=== PATIENT | female | born 1980 | race Caucasian/White ===

== ENCOUNTER 2022-10-04 08:00 | Day surgery (SDC) | payer BC ==
--- NOTE | 2022-10-03 13:17 | HP ---
DATE OF SURGERY: 10/04/2022 HISTORY OF PRESENT ILLNESS: The patient is a 42-year-old female who not too long ago had laparoscopic cholecystectomy. She had done fine but had some complaints of some epigastric pain and some nausea. Apparently they done a CT scan on her that did not reveal any abnormalities. She presents for an EGD at this time. PAST MEDICAL HISTORY: None. PAST SURGICAL HISTORY: Tubal. ALLERGIES: NKDA. ADHESIVE TAPE. MEDICATIONS: None. FAMILY HISTORY: None. SOCIAL HISTORY: None. REVIEW OF SYSTEMS: CONSTITUTIONAL: Denies fever or chills. CHEST: Denies shortness of breath. CVS: Denies chest pain. ABDOMEN: Reports epigastric pain, nausea. PHYSICAL EXAMINATION: GENERAL: No acute distress. CHEST: Nonlabored. No shortness of breath. CVS: Regular rate and rhythm. ABDOMEN: Soft. IMPRESSION: Epigastric pain, nausea. PLAN: EGD with Dr. Chato Singh. As dictated by Belia Mccord NP.
[2022-10-04] MEDS ORDERED: Lactated Ringers 1,000 ML IV SCH (08:30)
[2022-10-04] MEDS ORDERED: Lactated Ringers 1,000 ML IV ONE (08:47)
[2022-10-04] MEDS ORDERED: VERSED 5 MG/5 ML ONE (10:21)
[2022-10-04] MEDS ORDERED: Xylocaine-Mpf 2% 5 Ml Vial ONE ×2 (10:24→10:30)
[2022-10-04] MEDS ORDERED: DIPRIVAN 200 MG/20 ML IV ONE (10:24)
--- NOTE | 2022-10-04 11:47 | OP ---
SURGERY DATE/TIME: 10/04/2022 1026 PREOPERATIVE DIAGNOSIS: Epigastric pain post-cholecystectomy. POSTOPERATIVE DIAGNOSIS: Reflux, grade 2 over 4 otherwise normal. PROCEDURE: EGD. SURGEON: Chato Singh M.D. ANESTHESIA: MAC. COMPLICATIONS: None. CONDITION: Stable. INDICATION: The patient had cholecystectomy and still has some upper abdominal discomfort. DESCRIPTION OF PROCEDURE: Taken to endoscopy. Left lateral decubitus position. Pharyngoesophageal junction normal. Esophagus normal down to gastroesophageal junction. Gastroesophageal junction abnormal, grade 2 over 4 gastroesophageal reflux disease. There is clear fluid in the upper fundus of the stomach. Fundus, body and antrum normal. Pylorus normal. Duodenal bulb normal. Second portion normal. Scope withdrawn looped upon itself. No hiatal hernia. The patient had grade 2 over 4 gastroesophageal reflux disease. Scope withdrawn. IMPRESSION: The patient has mild gastroesophageal reflux disease. She had cholecystectomy just a few months ago. She is doing well otherwise. Her baseline is 2 over 4 gastroesophageal reflux disease and hiatal hernia.
[2022-10-04 11:58] VITALS: BP 140/94; PULSE 64; O2SAT 100
== END 2022-10-04 11:40 | disposition home or self-care (01) ==
LOC: SDC 08:00
PROVIDERS: ATTEND Surgery
DX: K21.9 Gastro-esophageal reflux disease without esophagitis (principal); R10.13 Epigastric pain; K91.5 Postcholecystectomy syndrome
CPT/HCPCS: 81025; J2250; J2704